=== PATIENT | female | born 1995 ===

== ENCOUNTER 2024-10-27 09:26 | Outpatient (CLI) | payer OTHER | END 2024-10-27 09:27 | disposition home or self-care (01) | LOC: PRENATAL 09:26 | PROVIDERS: ATTEND Obstetrics & Gynecology Maternal & Fetal Medicine | DX: O36.80X0 Pregnancy with inconclusive fetal viability, not applicable or unspecified (principal); Z36.82 Encounter for antenatal screening for nuchal translucency; Z3A.14 14 weeks gestation of pregnancy ==

== ENCOUNTER 2024-12-22 13:50 | Outpatient (CLI) | payer OTHER | END 2024-12-22 13:51 | disposition home or self-care (01) | LOC: PRENATAL 13:50 | PROVIDERS: ATTEND Obstetrics & Gynecology Maternal & Fetal Medicine | DX: O44.00 Complete placenta previa NOS or without hemorrhage, unspecified trimester (principal); Z3A.21 21 weeks gestation of pregnancy ==

== ENCOUNTER → 2025-03-09 13:31 | Outpatient (CLI) | payer OTHER | END | disposition home or self-care (01) | LOC: PRENATAL 13:31 | PROVIDERS: ATTEND Obstetrics & Gynecology Maternal & Fetal Medicine | DX: O26.849 Uterine size-date discrepancy, unspecified trimester (principal); O36.8199 Decreased fetal movements, unspecified trimester, other fetus; Z3A.32 32 weeks gestation of pregnancy ==

== ENCOUNTER 2025-04-04 09:23 | Outpatient (CLI) | payer OTHER | END 2025-04-04 09:24 | disposition home or self-care (01) | LOC: PRENATAL 09:23 | PROVIDERS: ATTEND Obstetrics & Gynecology Maternal & Fetal Medicine | DX: Z76.1 Encounter for health supervision and care of foundling (principal) ==

== ENCOUNTER 2025-04-27 20:18 | Outpatient (CLI) | payer OTHER ==
[~2025-04-27] VITALS: Ht 160 cm; Wt 88.5 kg
[2025-04-27 19:38] VITALS: BP 124/87
[2025-04-27] MEDS ORDERED: PROTONIX40 MG PO (20:28)
[2025-04-27] MEDS ORDERED: PRENATAL TABLE1 EAC1 PO (20:28)
[2025-04-27] MEDS ORDERED: RINGERS SOLUTION,LACTATED 1,000 ML IV SCH (20:30)
[2025-04-27 21:00] LABS: BASO % 0.5 % (0.1-1.2); EOS # 0.08 (0.04-0.54); EOS % 1.4 % (0.7-7.0); LYMPH # 1.10 (1.18-3.74); LYMPH % 18.8 % (19.3-53.1); MEAN PLATELET VOLUME 10.90 fl (9.4-12.4); MONO # 0.46 (0.24-0.82); MONO % 7.9 % (4.7-12.5); NEUT # 4.15 (1.56-6.13); NEUT % 70.9 % (34.0-71.1); RED CELL DISTRIBUTION WIDTH 14.4 % (11.6-14.4)
[2025-04-27 21:05] LABS: URINE APPEARANCE Clear; URINE BILIRRUBIN Negative (NEGATIVE); URINE BLOOD Negative; URINE COLOR Yellow; URINE GLUCOSE Negative (NEGATIVE); URINE KETONE Trace (NEGATIVE); URINE LEUKOCYTE Small; URINE NITRATE Negative; URINE PROTEIN Trace (NEGATIVE); URINE UROBILINOGEN 0.2 E.U./dl
[2025-04-27 21:08] LABS: URINE BACTERIA 5500.3 uL (0.0-1933); URINE EPITHELIAL CELLS 23.5 uL (0.0-38.8); URINE RBC 9.8 uL (0.0-20.8); URINE WBC 106.4 uL (0.0-23.2)
[2025-04-27 21:17] LABS: URINE CAST 0.43 uL (0.0-1.40)
[2025-04-27 21:34] LABS: ALT/SGPT 15.0 U/L (12-78); AST/SGOT 15.0 U/L (15-37); BILIRUBIN TOTAL 0.26 mg/dL (0.3-1.2); BUN CREA RATIO 15.0 (7.0-25.0); CREATININE SERUM 0.73 mg/dL (0.55-1.02); GFR 94.25; GLOBULINA 3.2 G/DL (2.4-3.5); GLUCOSE FASTING 88.0 mg/dL (65-100); INR < 0.93; OSMOLALITY SERUM 278.0 MOSM/KG (275-295)
[2025-04-27 23:15] VITALS: BP 125/88
[2025-04-28 03:00] VITALS: BP 115/79
[2025-04-28 07:30] VITALS: BP 125/82
[2025-04-28 11:40] VITALS: BP 120/80
== END 2025-04-28 11:42 | disposition home or self-care (01) ==
LOC: OBS/DEL 20:18
PROVIDERS: ATTEND Obstetrics & Gynecology
DX: O26.893 Other specified pregnancy related conditions, third trimester (principal); Z3A.38 38 weeks gestation of pregnancy

== ENCOUNTER 2025-04-29 14:32 | Inpatient (IN) | payer OTHER ==
[~2025-04-29] VITALS: Ht 160 cm; Wt 88.5 kg
[2025-04-29 13:48] VITALS: BP 121/82
[~2025-04-29 14:32] MED LIST: PRENATAL TABLE1 EAC1 PO; PROTONIX40 MG PO
[2025-04-29] MEDS ORDERED: AMPICILLIN SODIUM 2,000 MG VIAL IV NR (15:00)
[2025-04-29] MEDS ORDERED: RINGERS SOLUTION,LACTATED 1,000 ML IV SCH (15:00)
[2025-04-29 15:18] VITALS: BP 113/84
[2025-04-29] MEDS ORDERED: AMPICILLIN SODIUM 1,000 MG VIAL IV SCH (17:00)
[2025-04-29 20:02] VITALS: BP 122/81
[2025-04-29] MEDS ORDERED: MORPHINE SULFATE 4 MG/ML VIAL IV ONE (23:00)
[2025-04-29 23:27] VITALS: BP 93/65
[2025-04-30 03:11] VITALS: BP 124/75
[2025-04-30 07:23] VITALS: BP 132/80
[2025-04-30] MEDS ORDERED: OXYTOCIN 500 ML IV SCH (10:00)
[2025-04-30 11:07] VITALS: BP 127/86
[2025-04-30 15:20] VITALS: BP 119/80; O2SAT 100
[2025-04-30 19:52] VITALS: BP 140/81
[2025-04-30] MEDS ORDERED: CEFAZOLIN SODIUM 1,000 MG VIAL IV SCH (20:30)
[2025-04-30] MEDS ORDERED: MORPHINE SULFATE 4 MG/ML CARTRIDGE IV PRN (22:45)
[2025-04-30] MEDS ORDERED: MORPHINE SULFATE 4 MG/ML VIAL IV ONE ×2 (23:20→23:50)
[2025-04-30] MEDS ORDERED: OXYTOCIN 1,000 ML IV SCH (23:45)
[2025-04-30] MEDS ORDERED: ERYTHROMYCIN BASE OPHT 1GM EACH TUBE OP ONE (23:45)
[2025-04-30] MEDS ORDERED: NALOXONE HCL 0.4 MG/ML AMPUL IV PRN (23:45)
[2025-04-30] MEDS ORDERED: CHLORHEXIDINE GLUCONATE 120 ML BOTTLE TP NR (23:45)
[2025-05-01] MEDS ORDERED: PROMETHAZINE HCL 25 MG/ML AMPUL IM SCH (01:00)
[2025-05-01 02:09] VITALS: BP 110/71
[2025-05-01 06:13] LABS: BASO % 0.2 % (0.1-1.2); EOS # 0.00 (0.04-0.54); EOS % 0.0 % (0.7-7.0); LYMPH # 0.58 (1.18-3.74); LYMPH % 6.7 % (19.3-53.1); MEAN PLATELET VOLUME 11.00 fl (9.4-12.4); MONO # 0.52 (0.24-0.82); MONO % 6.0 % (4.7-12.5); NEUT # 7.48 (1.56-6.13); NEUT % 86.6 % (34.0-71.1); RED CELL DISTRIBUTION WIDTH 14.6 % (11.6-14.4)
[2025-05-01] MEDS ORDERED: PNV,CALCIUM 72/IRON/FOLIC ACID 1 TAB TABLET PO SCH (09:00)
[2025-05-01] MEDS ORDERED: SIMETHICONE 125 MG CAPSULE PO SCH (09:00)
[2025-05-01] MEDS ORDERED: DOCUSATE SODIUM 100MG CAP PO SCH (09:00)
[2025-05-01] MEDS ORDERED: ACETAMINOPHEN 325 MG TABLET PO PRN (09:00)
[2025-05-01] MEDS ORDERED: OxyCODONE HCL 5 MG TABLET (ROXICODONE) PO PRN (09:00)
[2025-05-01 09:13] VITALS: BP 121/79; O2SAT 98
[2025-05-01 12:21] VITALS: BP 120/80; O2SAT 98
[2025-05-01] MEDS ORDERED: ERYTHROMYCIN BASE OPHT 1GM EACH TUBE OP ONE (16:00)
[2025-05-01] MEDS ORDERED: OXYTOCIN 20 UNITS/1000ML RL PIGGYBAG IV ONE (16:00)
[2025-05-01 16:16] VITALS: BP 111/77
[2025-05-02] VITALS: BP 118/80
[2025-05-02 09:16] VITALS: BP 114/79; O2SAT 98
== END 2025-05-02 12:37 | disposition home or self-care (01) | DRG 788 ==
LOC: OB/GYN 14:32 → LDR 14:32 → OB/GYN 04-30 21:19
PROVIDERS: Obstetrics & Gynecology; ADMIT Student in an Organized Health Care Education/Training Program; ATTEND Student in an Organized Health Care Education/Training Program
PROC: 10D00Z1 Extraction of Products of Conception, Low, Open Approach (ICD-10-PCS; principal; 2025-04-29)
PROC: 4A1HXCZ Monitoring of Products of Conception, Cardiac Rate, External Approach (ICD-10-PCS; 2025-04-29)
DX: O82 Encounter for cesarean delivery without indication (principal); O62.1 Secondary uterine inertia; Z3A.39 39 weeks gestation of pregnancy; Z37.0 Single live birth; O99.824 Streptococcus B carrier state complicating childbirth